=== PATIENT | female | born 1970 | race Caucasian/White ===

== ENCOUNTER 2016-09-23 00:38 | Emergency (ER) | payer MEDICARE, OTHER ==
--- NOTE | 2016-09-23 01:08 | ED.PDOC ---
History of Present Illness - General Chief Complaint: Abdominal Pain Stated Complaint: Low abd pain & LLE reddened and inflamed Time Seen by Provider: 09/23/16 01:06 Source: patient, RN notes reviewed, Vital Signs reviewed Exam Limitations: no limitations - History of Present Illness Initial Comments: Silvia Naqvi 46 y/o female stated that for the last 3 days gradual abdominal distention with on and off sharp/shooting pains was able to eat ,had normal bm not constipated or diarrhea had slight burning pain on urination and also had stepped wrong while walking and felt pain on left ankle initially no swelling but today more red and swelled up.No fever ,pain on weight bearing.She also mentioned about contact and exposure to tb her son who got out of alf and one of his cellmate had tb then son was incarcerated again she stated that her son had positive test and presently under treatment.Mentioned it to her md but did not recommend anything. Timing/Duration: other - 3 days Improving Factors: nothing Worsening Factors: nothing Associated Symptoms: denies symptoms Allergies/Adverse Reactions: Allergies Penicillins Allergy (Verified 09/23/16 00:56) Home Medications: Ambulatory Orders Gabapentin [Neurontin] 300 mg PO TID 09/23/16 HYDROcodone 7.5MG/APAP 325MG [[place] 7.5/325] 1 tab PO Q4HR PRN 09/23/16 Naproxen [Naprosyn] 500 mg PO BID #10 tab 09/23/16 Nitrofurantoin Monohydrate Mac [Macrobid] 100 mg PO BID #10 cap 09/23/16 Review of Systems - Review of Systems Constitutional: States: no symptoms reported EENTM: States: no symptoms reported Respiratory: States: no symptoms reported Cardiology: States: no symptoms reported Gastrointestinal/Abdominal: States: see HPI Genitourinary: States: see HPI Musculoskeletal: States: back pain - chronic, neck pain - chronic from neck injury 6 years ago and also right shoulder Skin: States: no symptoms reported Neurological: States: paresthesia - neuropathy 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 Endocrine: States: no symptoms reported Hematologic/Lymphatic: States: no symptoms reported Past Medical History (General) - Patient Medical History Hx Seizures: Yes Hx Stroke: No Hx Congestive Heart Failure: No Hx Diabetes: No Hx Cancer: No Hx Hepatitis C: No Surgical History: other - hysterctomy,BTL - Vaccination History Hx Tetanus, Diphtheria Vaccination: Yes - UTD - Social History Hx Tobacco Use: Yes Hx Chewing Tobacco Use: No Hx Alcohol Use: No Hx Substance Use: No Hx Substance Use Treatment: No Hx Depression: No Feels Threatened In Home Enviroment: No Feels Threatened In a Relationship: No Hx Physical Abuse: No Hx Emotional Abuse: No Hx Suspected Abuse: No - Activities of Daily Living Patient Lives Alone: No - family in [place] - Female History Patient is a Female of Child Bearing Age (10 -59 yrs old): No Patient : No Family Medical History - Family History Grandparents Family History: Unknown Hx Family Hypertension: Yes - parents Hx Family;Other: exposed to son with PTB now in alf Physical Exam - Physical Exam General Appearance: Alert, No apparent distress Eye Exam: bilateral normal Ears, Nose, Throat: hearing grossly normal, normal ENT inspection, normal pharynx Neck: non-tender, full range of motion, supple, normal inspection Respiratory: chest non-tender, lungs clear, normal breath sounds, no respiratory distress Cardiovascular/Chest: normal peripheral pulses, regular rate, rhythm, no edema, no murmur Peripheral Pulses: radial,right: 2+, radial,left: 2+, posterior tibialis,right: 2+, posterior tibialis,left: 2+ Gastrointestinal/Abdominal: normal bowel sounds, non tender, soft, distended - mild distention Back Exam: normal inspection, no CVA tenderness, no vertebral tenderness Extremity: non-tender, normal inspection, no calf tenderness, other - left ankle swelling with redness and ecchymosis lateral aspect distal third left leg, no calf tenderness;right leg no swelling Neurologic: alert, normal mood/affect, oriented x 3 Skin Exam: normal color, warm/dry Lymphatic: no adenopathy Progress - Progress Progress: 09/23/16 02:29 Vital Signs - 8 hr 09/23/16 00:56 Temperature 96.5 F L Pulse Rate [L 60 Arm] Respiratory 20 Rate Blood Pressure 135/76 [L Arm] O2 Sat by Pulse 96 Oximetry - Results/Orders Results/Orders: 09/23/16 01:15 URINE CULTURE W/COLONY COUNT Stat 09/23/16 02:50 URINE CULTURE W/COLONY COUNT Stat Laboratory Results - last 24 hr 09/23/16 09/23/16 09/23/16 01:00 01:00 01:00 WBC 7.3 RBC 4.77 Hgb 14.7 Hct 44.6 MCV 93.5 MCH 30.8 MCHC 32.9 L RDW 16.0 H Plt Count 260 MPV 8.0 Absolute Neuts (auto) 5.10 Absolute Lymphs (auto) 1.70 Absolute Monos (auto) 0.40 Absolute Eos (auto) 0.10 Absolute Basos (auto) 0.00 Neutrophils % 70.0 Lymphocytes % 22.7 Monocytes % 5.8 Eosinophils % 0.9 L Basophils % 0.6 ESR 19 D-Dimer, Quantitative 285 H* Sodium Potassium Chloride Carbon Dioxide Anion Gap BUN Creatinine BUN/Creatinine Ratio Random Glucose Serum Osmolality Calcium Total Bilirubin AST ALT Alkaline Phosphatase Serum Total Protein Albumin Globulin Albumin/Globulin Ratio Lipase Urine Color Urine Appearance Urine pH Ur Specific [place] Urine Protein Urine Glucose (UA) Urine Ketones Urine Blood Urine Nitrite Urine Bilirubin Urine Urobilinogen Ur Leukocyte Esterase Urine RBC Urine WBC Ur Epithelial Cells Amorphous Sediment Urine Bacteria Urine Opiates Screen Urine Barbiturates Ur Phencyclidine Scrn U Amphetamin/Meth Scrn U Benzodiazepines Scrn U Cocaine Metab Screen U Cannabinoids Screen 09/23/16 09/23/16 09/23/16 01:00 01:15 01:15 WBC RBC Hgb Hct MCV MCH MCHC RDW Plt Count MPV Absolute Neuts (auto) Absolute Lymphs (auto) Absolute Monos (auto) Absolute Eos (auto) Absolute Basos (auto) Neutrophils % Lymphocytes % Monocytes % Eosinophils % Basophils % ESR D-Dimer, Quantitative Sodium 142 Potassium 3.6 Chloride 102 Carbon Dioxide 30 Anion Gap 13.6 BUN 13 Creatinine 0.66 BUN/Creatinine Ratio 19.7 Random Glucose 123 H Serum Osmolality 284.6 Calcium 10.2 Total Bilirubin 0.4 AST 20 ALT 19 Alkaline Phosphatase 58 Serum Total Protein 8.0 Albumin 4.3 Globulin 3.7 H Albumin/Globulin Ratio 1.2 Lipase 25 Urine Color Yellow Urine Appearance Cloudy Urine pH 7.0 Ur Specific [place] 1.015 Urine Protein Negative Urine Glucose (UA) Negative Urine Ketones Negative Urine Blood Negative Urine Nitrite Positive H Urine Bilirubin Negative Urine Urobilinogen 2.0 H Ur Leukocyte Esterase Trace H Urine RBC 0-1 Urine WBC 3-5 H Ur Epithelial Cells 5-10 Amorphous Sediment 1+ Urine Bacteria 4+ H Urine Opiates Screen Negative Urine Barbiturates Negative Ur Phencyclidine Scrn Negative U Amphetamin/Meth Scrn Positive H U Benzodiazepines Scrn Negative U Cocaine Metab Screen Negative U Cannabinoids Screen Negative - EKG/XRAY/CT XRAY: ankle - no acute abnormalities/radiologist Departure - Departure Clinical Impression: Contact with and exposure to tuberculosis Abdominal pain Qualifiers: Abdominal location: lower abdomen Qualified Code(s): R10.30 - Lower abdominal pain, unspecified Urinary tract infection Qualifiers: Urinary tract infection type: site unspecified Hematuria presence: without hematuria Qualified Code(s): N39.0 - Urinary tract infection, site not specified Pain and swelling of ankle Qualifiers: Laterality: left Qualified Code(s): M25.472 - Effusion, left ankle Time of Disposition: 03:36 Disposition: Discharge to Home or Self Care Condition: Good Departure Forms: ED Discharge - Pt. Copy, Patient Portal Self Enrollment Instructions: DI for Abdominal Pain-Adult, DI for Urinary Tract Infection (UTI) Referrals: Luis Salazar III, MD [Primary Care Provider] - 1-2 Weeks Prescriptions: Naproxen [Naprosyn] 500 mg PO BID #10 tab Nitrofurantoin Monohydrate Mac [Macrobid] 100 mg PO BID #10 cap Home Medications: Ambulatory Orders Gabapentin [Neurontin] 300 mg PO TID 09/23/16 HYDROcodone 7.5MG/APAP 325MG [[place] 7.5/325] 1 tab PO Q4HR PRN 09/23/16 Naproxen [Naprosyn] 500 mg PO BID #10 tab 09/23/16 Nitrofurantoin Monohydrate Mac [Macrobid] 100 mg PO BID #10 cap 09/23/16 Additional Instructions: Follow up with primary md 09/24/2016;Need to got to nearest public health clinic [facility] [address]
[2016-09-23] MEDS ORDERED: LACTATED RINGERS 1,000 ML IVS ONE (01:09)
--- NOTE | 2016-09-23 02:39 | RAD ---
Procedure: XR ANKLE 3 OR MORE VIEWS Exam Date: 09/23/2016 Ordering Provider: Bacilio Holley Clinical Indication: pain Comparison: None FINDINGS: No acute fracture or subluxation. The articular surface of the left ankle has a normal appearance. No joint effusion. No significant soft-tissue swelling. No subcutaneous gas evident. No radiopaque foreign body. IMPRESSION: 1. No acute fracture or dislocation of the left ankle. Electronically signed by: Christian Orr MD 09/23/2016 2:37 AM CDT
--- NOTE | 2016-09-23 02:41 | RAD ---
Procedure: XR CHEST 2 VIEWS Exam Date: 09/23/2016 Ordering Provider: Bacilio Holley Clinical Indication: pain Comparison: None Findings: Cardiac silhouette: Normal Pulmonary vasculature : Normal Mediastinal contour: Normal Aortic contour: Normal Focal lung consolidation: None Pleural effusion: None Pneumothorax: None Acute bony or soft tissue abnormality: No acute osseous abnormalities. Anterior cervical fusion. Impression: 1. No acute abnormalities in the chest. Electronically signed by: Christian Orr MD 09/23/2016 2:40 AM CDT
--- NOTE | 2016-09-23 02:44 | RAD ---
Procedure: XR ABDOMEN 2 VIEWS SUPINE ERECT Exam Date: 09/23/2016 Ordering Provider: Bacilio Holley Clinical Indication: pain Comparison: None Findings: There is no small or large bowel distention. There is no pneumoperitoneum. There are no suspicious calcifications. Pelvic phleboliths. There is no acute skeletal abnormality. Impression: 1. No acute findings. Electronically signed by: Christian Orr MD 09/23/2016 2:43 AM CDT
[2016-09-23] MEDS ORDERED: KETOROLAC TROMETHAMINE INJ 60 MG/2 ML VIAL IM ONE (03:30)
[2016-09-23] MEDS ORDERED: NITROFURANTOIN MONOHYDRATE MAC 100 MG CAP PO ONE (03:31)
[2016-09-23 04:11] VITALS: BP 98/54; TEMP 97.2; O2SAT 97
== END 2016-09-23 04:05 | disposition home or self-care (01) ==
LOC: ER 00:38
DX: N39.0 Urinary tract infection, site not specified (principal); M25.472 Effusion, left ankle; M25.572 Pain in left ankle and joints of left foot; R56.9 Unspecified convulsions; Z20.1 Contact with and (suspected) exposure to tuberculosis; Z87.891 Personal history of nicotine dependence; Z79.899 Other long term (current) drug therapy; Z88.0 Allergy status to penicillin
CPT/HCPCS: 36415; 71020; 73610; 74010; 80053; 80307; 81001; 83690; 85025; 85379; 85651; 87086; J1885; J7120